=== PATIENT | female | born 1995 | race Caucasian/White ===

== ENCOUNTER 2019-04-07 08:58 | Outpatient (CLI) | payer BC ==
--- NOTE | 2019-04-07 10:51 | CT ---
CT of the abdomen with and without contrast: 04/07/2019 COMPARISON: CT angiogram of abdomen 02/28/2015 HISTORY: Evaluate for an adrenal mass lesion, history of Lyme disease, history of renal stone disease TECHNIQUE: Axial CT imaging at 5 mm intervals through the abdomen obtained with and without IV contra st using adrenal mass protocol. Coronal and sagittal reformatted imaging obtained FINDINGS: Imaged lung bases unremarkable. Cholecystectomy clips are present. The liver, spleen, pancreas, and adrenal glands are unremarkable on the precontrast and postcontrast imaging. There is a small round focus of soft tissue density between the upper pole of the left kidney and the medial aspect of the spleen just lateral to the left adrenal gland suggesting a small splenule. There is a punctate nonobstructing stone within the upper pole of the left kidney. Right kidney unrem arkable. The pelvis is not imaged on this exam. No lymphadenopathy is noted within the abdomen. Limited evaluation of the imaged bowel without contrast media is unremarkable. No acute osseous abnormality. IMPRESSION: No adrenal mass seen.
[2019-04-07] MEDS ORDERED: Iopamidol 370 76% 100 ML VIAL ONE (13:30)
== END 2019-04-07 08:59 | disposition home or self-care (01) ==
LOC: CT 08:58
DX: E78.5 Hyperlipidemia, unspecified (principal); M54.2 Cervicalgia; E34.9 Endocrine disorder, unspecified; R79.9 Abnormal finding of blood chemistry, unspecified; M54.5 Low back pain; R53.83 Other fatigue; M62.838 Other muscle spasm; R63.8 Other symptoms and signs concerning food and fluid intake; M25.551 Pain in right hip; M54.6 Pain in thoracic spine; M25.50 Pain in unspecified joint; M54.12 Radiculopathy, cervical region; R06.9 Unspecified abnormalities of breathing
CPT/HCPCS: 74170; Q9967

== ENCOUNTER 2020-02-07 15:01 | Outpatient (CLI) | payer BC ==
--- NOTE | 2020-02-07 15:47 | ULT ---
Bilateral renal ultrasound CLINICAL INDICATION: Renal calculi COMPARISON: 04/07/2019 FINDINGS: Right kidney: There is no evidence of a renal mass, renal calculus, or hydronephrosis seen. The right kidney measures 11.2 cm x 4 cm. Left kidney: Approximately 1 cm anechoic structure seen in the superior pole right kidney suggestive of a small cyst. This was seen on prior CT examination in 2019 and is smaller in size compared to CT examinations in 2015. There are small subcentimeter echogenic foci seen within the superior pole l eft kidney as well as midportion left kidney which may represent nonobstructing calculi. Calculus in the superior pole is difficult to adequately measure due to adjacent renal sinus fat. However, the calculus in the midportion left kidney measures approximately 0.7 cm. No obstructing calculus is seen. There is no hydronephrosis on the left.The left kidney measures 12 cm x 4.3 cm. Urinary bladder: Incompletely distended. IMPRESSION: 1. Normal-appearing right kidney without hydronephrosis or obvious renal calculus. 2. Suggestion of subcentimeter nonobstructing midportion and superior pole left renal calculi. 3. Small superior pole left renal cyst.
== END 2020-02-07 15:02 | disposition home or self-care (01) ==
LOC: SCSULT 15:01
PROVIDERS: ATTEND Urology
DX: N20.0 Calculus of kidney (principal); N28.1 Cyst of kidney, acquired
CPT/HCPCS: 76770

== ENCOUNTER 2020-03-14 07:50 | Outpatient (CLI) | payer BC ==
--- NOTE | 2020-03-14 08:45 | MRI ---
MRI of thelumbar spine: 03/14/2020 COMPARISON:None available HISTORY:Bilateral flank pain, back pain TECHNIQUE: Multiplanar multisequence MR imaging of thelumbar spine without contrast Findings:On the basis of 5 lumbar type vertebral bodies, conus medullaris terminates at T12-L1. Sagittal STIR imaging demonstrates no focal area of osseous marrow edema. T12-L1: Unremarkable L1-2: Unremarkable L2-3: Unremarkable L3-4: Unremarkable L4-5: Unremarkable L5-S1: Mild facet hypertrophy on the left. No significant central canal or neural foraminal stenosis. Image retroperitoneal structures demonstrate no acute findings. IMPRESSION:No significant central canal or neural foraminal stenosis within the lumbar spine:
--- NOTE | 2020-03-14 10:42 | CT ---
CT OF THE ABDOMEN AND PELVIS WITHOUT IV CONTRAST: Date: 03/14/2020 INDICATION: 24-year-old female with history of flank pain and renal stones. COMPARISON: Prior CT of the abdomen with and without contrast dated 04/07/[address] of the abdomen and pelvis without contrast dated 04/29/2019. FINDINGS: The 2.0 mm calculus involving the superior pole of the left kidney on the prior examination is stable appearing. No hydronephrosis or ureteral calculus is grossly evident. Gallbladder is surgically absent. The lung bases are clear. Unopacified liver, pancreas, adrenal glands, spleen, and kidneys appear within normal limits. No free fluid is evident. There is a normal appendix in the right lower quadrant. There is a moderate amount of retained stool within the colon. Small bowel is of normal caliber. The bladder is decompressed. The rectum and perir ectal soft tissues are unremarkable appearing. No enlarged lymph nodes are evident within the pelvis. No definite acute osseous abnormality is noted. IMPRESSION: 1. Stable left nephrolithiasis. No definite ureteral calculus or hydronephrosis demonstrated. 2. Cholecystectomy. 3. Moderate amount of retained stool within the colon. 4. Normal appendix. POS: AH
== END 2020-03-14 07:51 | disposition home or self-care (01) ==
LOC: MRI 07:50
PROVIDERS: ATTEND Neurological Surgery
DX: M54.5 Low back pain (principal); R10.9 Unspecified abdominal pain; N20.0 Calculus of kidney; K59.00 Constipation, unspecified; Z90.49 Acquired absence of other specified parts of digestive tract
CPT/HCPCS: 72148; 74176

== ENCOUNTER 2020-03-19 13:27 | Emergency (ER) | payer BC ==
[2020-03-19 15:35] LABS: Bilirubin Negative (Negative); Blood, Urine Negative (Negative); Clarity Clear (Clear); Glucose, Urine (Dipstick) Normal (Negative); Ketone, Urine Negative (Negative); Leukocyte Negative Leu/uL (Negative); Nitrite Negative (Negative); Protein, Urine (Dipstick) Negative (Neg-Trace); Specific Gravity, Urine 1.013 (1.002-1.036); Urobilinogen Normal mg/dL (Less than 2); pH, Urine 7.5 (5.0-9.0)
[2020-03-19 15:37] LABS: Pregnancy Test - Urine (BHCG) Negative (Negative); Pregu Control Background? CLEAR/WHITE (CLR/WHITE); Pregu Control Bar Appear? YES (CONTROL BAR); Specific Gravity 1.013 (1.002-1.036)
[2020-03-19 15:55] LABS: #Basophils 0.1 thou/uL (0.0-0.2); #Eosinphils 0.1 thou/uL (0.0-0.7); #Lymphocytes 3.2 thou/uL (1.20-3.40); #Monocytes 0.4 thou/uL (0.11-0.59); #Neutrophils 2.7 thou/uL (1.40-6.50); %Basophils 1.1 % (0.0-1.0); %Lymphocytes 48.6 % (21.0-51.0); %Monocytes 6.7 % (0.0-10.0); %Neutrophils 41.7 % (42.0-75.0); Hemoglobin 13.9 g/dL (12.0-16.0); Mean Corpuscular HGB CONC 34.5 g/dL (32.0-36.0); Mean Corpuscular Hemoglobin 31.1 pg (27.0-31.0); Mean Corpuscular Volume 90.1 fL (78.0-98.0); Mean Platelet Volume 7.8 fL (7.4-10.4); Platelet Count 364 thou/uL (130-400); RBC Distribution Width 11.3 % (11.5-14.5); Red Blood Cell (RBC) Count 4.47 mill/uL (4.20-5.40); White Blood Cell (WBC) Count 6.6 thou/uL (4.8-10.8)
[2020-03-19 16:07] LABS: BHCG - Serum Negative (NEGATIVE); Pregs Control Background? CLEAR/WHITE (CLR/WHITE); Pregs Control Bar Appear? YES (CONTROL BAR)
[2020-03-19 16:17] LABS: ALT (SGPT) 26 U/L (8-55); AST (SGOT) 24 U/L (5-34); Albumin 4.3 g/dL (3.5-5.0); Alkaline Phosphatase 38 U/L (40-110); Anion Gap 13 mmol/L (10-20); BUN (Urea Nitrogen) 8 mg/dL (7.0-18.7); Bilirubin, Total 0.2 mg/dL (0.2-1.2); Calc. Creatinine Clearance 0 mL/min (70-130); Calcium 9.1 mg/dL (7.8-10.44); Carbon Dioxide 23 mmol/L (22-29); Chloride 105 mmol/L (98-107); Estimated GFR-MDRD Greater than 90; Globulin 2.7 g/dL (2.4-3.5); Glucose 95 mg/dL (70-105); Potassium 3.9 mmol/L (3.5-5.1); Sodium 137 mmol/L (136-145)
== END 2020-03-19 17:21 | disposition home or self-care (01) ==
LOC: ERS 13:27
DX: R30.0 Dysuria (principal); R10.9 Unspecified abdominal pain; G89.4 Chronic pain syndrome; R50.9 Fever, unspecified; M25.559 Pain in unspecified hip; M54.9 Dorsalgia, unspecified; F41.9 Anxiety disorder, unspecified; F32.9 Major depressive disorder, single episode, unspecified; Z79.891 Long term (current) use of opiate analgesic
CPT/HCPCS: 36415; 80053; 81003; 81025; 84703; 85025; 87086; 99284

== ENCOUNTER 2021-05-06 15:36 | Outpatient (CLI) | payer BC | END 2021-05-06 15:37 | disposition home or self-care (01) | LOC: CTENTCT 15:36 | PROVIDERS: ATTEND Specialist | DX: J32.8 Other chronic sinusitis (principal) | CPT/HCPCS: 70486 ==

== ENCOUNTER 2021-09-24 17:11 | Emergency (ER) | payer BC ==
[2021-09-24] MEDS ORDERED: Ketorolac Tromethamine 30 MG/ML VIAL ONE (17:34)
[2021-09-24] MEDS ORDERED: Morphine 4 MG/ML VIAL ONE ×3 (17:34→20:29)
[2021-09-24] MEDS ORDERED: Ondansetron PF 4 MG/2 ML Vial ONE (17:34)
[2021-09-24 17:42] LABS: #Lymphocytes 2.2 thou/uL (1.20-3.40); #Monocytes 0.6 thou/uL (0.11-0.59); #Neutrophils 4.6 thou/uL (1.40-6.50); %Basophils 0.5 % (0.0-1.0); %Eosinophils 0.5 % (0.0-10.0); %Lymphocytes 29.1 % (21.0-51.0); %Monocytes 7.7 % (0.0-10.0); %Neutrophils 62.2 % (42.0-75.0); Hemoglobin 13.2 g/dL (12.0-16.0); Mean Corpuscular HGB CONC 32.8 g/dL (32.0-36.0); Mean Corpuscular Hemoglobin 31.2 pg (27.0-31.0); Mean Corpuscular Volume 95.2 fL (78.0-98.0); Mean Platelet Volume 7.1 fL (7.4-10.4); Platelet Count 280 thou/uL (130-400); RBC Distribution Width 12.6 % (11.5-14.5); Red Blood Cell (RBC) Count 4.24 mill/uL (4.20-5.40); White Blood Cell (WBC) Count 7.4 thou/uL (4.8-10.8)
[2021-09-24 18:05] LABS: ALT (SGPT) 69 U/L (8-55); AST (SGOT) 27 U/L (5-34); Albumin 4.5 g/dL (3.5-5.0); Alkaline Phosphatase 40 U/L (40-110); Anion Gap 14 mmol/L (10-20); BUN (Urea Nitrogen) 15 mg/dL (7.0-18.7); Bilirubin, Total 0.3 mg/dL (0.2-1.2); Calc. Creatinine Clearance 0 mL/min (70-130); Calcium 9.4 mg/dL (7.8-10.44); Carbon Dioxide 19 mmol/L (22-29); Chloride 108 mmol/L (98-107); Globulin 2.6 g/dL (2.4-3.5); Glucose 105 mg/dL (70-105); Lipase 19 U/L (8-78); Potassium 3.8 mmol/L (3.5-5.1); Protein, Total 7.1 g/dL (6.0-8.3); Sodium 137 mmol/L (136-145)
[2021-09-24 19:21] LABS: Bilirubin Negative (Negative); Blood, Urine Negative (Negative); Clarity Clear (Clear); Glucose, Urine (Dipstick) Normal (Negative); Ketone, Urine Negative (Negative); Leukocyte Negative Leu/uL (Negative); Nitrite Negative (Negative); Protein, Urine (Dipstick) Negative (Neg-Trace); Specific Gravity, Urine 1.016 (1.002-1.036); Urobilinogen Normal mg/dL (Less than 2)
[2021-09-24 19:23] LABS: Pregnancy Test - Urine (BHCG) Negative (Negative)
[2021-09-24 19:24] LABS: Pregu Control Background? CLEAR/WHITE (CLR/WHITE); Pregu Control Bar Appear? YES (CONTROL BAR); Specific Gravity 1.016 (1.002-1.036)
[2021-09-24] MEDS ORDERED: Promethazine HCl 25 MG in Sodium Chloride 0.9% 50 ML IVPB SCH (19:30)
== END 2021-09-24 21:09 | disposition home or self-care (01) ==
LOC: ERS 17:11
DX: N20.2 Calculus of kidney with calculus of ureter (principal)
CPT/HCPCS: 74176; 80053; 81003; 81025; 83690; 85025; 96365; 96375; 96376; J1885; J2270; J2405; J2550

== ENCOUNTER 2021-09-26 17:51 | Outpatient (CLI) | payer BC ==
[2021-09-27 02:13] LABS: SARS-CoV-2 PCR by NAA Not Detected (NotDetected)
== END 2021-09-26 17:52 | disposition home or self-care (01) ==
LOC: LABBT 17:51
PROVIDERS: ATTEND Urology
DX: Z20.822 Contact with and (suspected) exposure to COVID-19 (principal)
CPT/HCPCS: U0003; U0005

== ENCOUNTER 2021-09-27 10:04 | Outpatient (CLI) | payer BC | END 2021-09-27 10:05 | disposition home or self-care (01) | LOC: RAD 10:04 | PROVIDERS: ATTEND Urology | DX: N20.0 Calculus of kidney (principal) | CPT/HCPCS: 74018 ==

== ENCOUNTER 2021-10-09 11:54 | Outpatient (CLI) | payer BC | END 2021-10-09 11:55 | disposition home or self-care (01) | LOC: CT 11:54 | PROVIDERS: ATTEND Urology | DX: N20.2 Calculus of kidney with calculus of ureter (principal) | CPT/HCPCS: 74176 ==

== ENCOUNTER 2021-10-18 20:24 | Inpatient (IN) | payer BC ==
[2021-10-18] MEDS ORDERED: Fentanyl 100 MCG/2 ML VIAL ONE (21:38)
[2021-10-18] MEDS ORDERED: Ketorolac Tromethamine 30 MG/ML VIAL ONE (21:38)
[2021-10-18] MEDS ORDERED: Dicyclomine 20 MG/2 ML VIAL ONE (21:38)
[2021-10-18] MEDS ORDERED: Ondansetron PF 4 MG/2 ML Vial ONE (22:25)
[2021-10-19] MEDS ORDERED: Promethazine HCl 12.5 MG in Sodium Chloride 0.9% 50 ML IVPB SCH ×2 (01:15→04:45)
[2021-10-19 02:06] LABS: #Basophils 0.1 thou/uL (0.0-0.2); #Eosinphils 0.1 thou/uL (0.0-0.7); #Lymphocytes 2.1 thou/uL (1.20-3.40); #Monocytes 0.9 thou/uL (0.11-0.59); #Neutrophils 4.8 thou/uL (1.40-6.50); %Basophils 0.8 % (0.0-1.0); %Eosinophils 0.7 % (0.0-10.0); %Lymphocytes 26.1 % (21.0-51.0); %Monocytes 11.8 % (0.0-10.0); %Neutrophils 60.6 % (42.0-75.0); Mean Corpuscular HGB CONC 33.3 g/dL (32.0-36.0); Mean Corpuscular Hemoglobin 30.7 pg (27.0-31.0); Mean Corpuscular Volume 92.1 fL (78.0-98.0); Mean Platelet Volume 7.4 fL (7.4-10.4); Platelet Count 268 thou/uL (130-400); RBC Distribution Width 12.4 % (11.5-14.5); Red Blood Cell (RBC) Count 4.24 mill/uL (4.20-5.40)
[2021-10-19 02:53] LABS: Albumin 3.8 g/dL (3.5-5.0)
[2021-10-19 02:55] LABS: Calcium 8.3 mg/dL (7.8-10.44); Chloride 114 mmol/L (98-107); Potassium 3.9 mmol/L (3.5-5.1); Sodium 139 mmol/L (136-145)
[2021-10-19 02:56] LABS: Globulin 2.1 g/dL (2.4-3.5); Glucose 63 mg/dL (70-105); Protein, Total 5.9 g/dL (6.0-8.3)
[2021-10-19 02:57] LABS: Anion Gap 18 mmol/L (10-20); Carbon Dioxide 11 mmol/L (22-29)
[2021-10-19 02:58] LABS: Bilirubin, Total 0.3 mg/dL (0.2-1.2)
[2021-10-19 02:59] LABS: Alkaline Phosphatase 44 U/L (40-110); Calc. Creatinine Clearance 0 mL/min (70-130)
[2021-10-19 03:00] LABS: BUN (Urea Nitrogen) 9 mg/dL (7.0-18.7)
[2021-10-19 03:01] LABS: AST (SGOT) 146 U/L (5-34)
[2021-10-19 03:02] LABS: ALT (SGPT) 201 U/L (8-55)
[2021-10-19] MEDS ORDERED: Acetaminophen 325 MG TAB PO PRN (04:25)
[2021-10-19] MEDS ORDERED: Acetaminophen 500 MG TAB PO PRN (04:29)
[2021-10-19] MEDS ORDERED: Fentanyl 100 MCG/2 ML VIAL SLOW IVP SCH (04:45)
[2021-10-19] MEDS ORDERED: Fentanyl 100 MCG/2 ML VIAL ONE (04:53)
[2021-10-19] MEDS ORDERED: Ondansetron PF 4 MG/2 ML Vial ONE (04:53)
[2021-10-19 06:28] VITALS: BMI 35.9
[2021-10-19 08:02] LABS: HBCM Index 0.11 S/CO (0-0.79); HBSAg Index 0.27 S/CO (0-0.99); Hep A IgM AB Non-Reactive (NonReactive); Hep A IgM S/CO 0.25 S/CO (0-0.79); Hep B Surf Ag Non-Reactive S/CO (NonReactive); Hep C IgG Ab Non-Reactive (NonReactive); Hep C Index 0.05 S/CO (0-0.79); Hepatitis B Core IgM Abs Non-Reactive (NonReactive)
[2021-10-19] MEDS: Sodium Bicarbonate 150 MEQ in Dextrose 5% in Water 1,000 ML IV SCH ×2 (08:10→18:29)
[2021-10-19 08:30] LABS: Free T4 (Free Thyroxine) 0.71 ng/dL (0.70-1.48)
[2021-10-19] MEDS ORDERED: Pantoprazole 40 MG VIAL IVP SCH (09:00)
[2021-10-19] MEDS ORDERED: Montelukast Sodium 10 mg Tablet PO SCH (09:00)
[2021-10-19] MEDS: Ondansetron PF 4 MG/2 ML Vial IVP PRN ×3 (11:52→23:00)
[2021-10-19] MEDS: Nebivolol HCl 5 MG TAB PO SCH (13:28)
[2021-10-19] MEDS: Gabapentin 300 MG CAP PO SCH ×3 (13:36→18:30)
[2021-10-19] MEDS: Clopidogrel Bisulfate 75 MG TAB PO SCH ×2 (13:36→13:53)
[2021-10-19] MEDS: oxyCODONE 5 MG TAB PO SCH ×5 (13:37→22:51)
[2021-10-19] MEDS: Enoxaparin Sodium 40 MG/0.4 ML SYRINGE SC SCH (13:40)
[2021-10-19] MEDS ORDERED: Ketorolac Tromethamine 30 MG/ML VIAL IVP SCH (17:30)
[2021-10-19] MEDS ORDERED: Ketorolac Tromethamine 30 MG/ML VIAL ONE (17:36)
[2021-10-19] MEDS ORDERED: Oxycodone Myristate [Xtampza Er] 13.5 MG Cap.Spr.12 PO SCH ×2 (21:00→22:30)
[2021-10-19] MEDS: Montelukast Sodium 10 mg Tablet PO SCH (21:33)
[2021-10-19] MEDS: CROMOLYN SODIUM 20 MG/ML PO SCH ×2 (22:27→22:53)
[2021-10-19] MEDS ORDERED: hydrOXYzine 25 MG TAB PO SCH (23:59)
[2021-10-19] MEDS ORDERED: traMADol HCl 50 MG TAB PO SCH (23:59)
[2021-10-20] MEDS: Gabapentin 300 MG CAP PO SCH ×3 (03:34→18:43)
[2021-10-20] MEDS: oxyCODONE 5 MG TAB PO SCH ×5 (03:34→18:43)
[2021-10-20] MEDS: Sodium Bicarbonate 150 MEQ in Dextrose 5% in Water 1,000 ML IV SCH ×3 (06:29→23:03)
[2021-10-20 06:33] LABS: #Eosinphils 0.1 thou/uL (0.0-0.7); #Lymphocytes 1.9 thou/uL (1.20-3.40); #Monocytes 0.6 thou/uL (0.11-0.59); #Neutrophils 1.5 thou/uL (1.40-6.50); %Basophils 0.5 % (0.0-1.0); %Eosinophils 2.6 % (0.0-10.0); %Lymphocytes 45.4 % (21.0-51.0); %Neutrophils 37.6 % (42.0-75.0); Hemoglobin 11.9 g/dL (12.0-16.0); Mean Corpuscular HGB CONC 33.8 g/dL (32.0-36.0); Mean Corpuscular Hemoglobin 31.6 pg (27.0-31.0); Mean Corpuscular Volume 93.4 fL (78.0-98.0); Mean Platelet Volume 7.7 fL (7.4-10.4); Platelet Count 259 thou/uL (130-400); Red Blood Cell (RBC) Count 3.78 mill/uL (4.20-5.40); White Blood Cell (WBC) Count 4.1 thou/uL (4.8-10.8)
[2021-10-20 06:42] LABS: ALT (SGPT) 239 U/L (8-55); AST (SGOT) 195 U/L (5-34); Albumin 3.7 g/dL (3.5-5.0); Alkaline Phosphatase 42 U/L (40-110); Anion Gap 14 mmol/L (10-20); BUN (Urea Nitrogen) 6 mg/dL (7.0-18.7); Bilirubin, Total 0.4 mg/dL (0.2-1.2); Calc. Creatinine Clearance 152 mL/min (70-130); Calcium 8.7 mg/dL (7.8-10.44); Carbon Dioxide 21 mmol/L (22-29); Chloride 108 mmol/L (98-107); Globulin 1.9 g/dL (2.4-3.5); Glucose 89 mg/dL (70-105); Protein, Total 5.6 g/dL (6.0-8.3); Sodium 140 mmol/L (136-145)
[2021-10-20 06:46] LABS: Potassium 2.9 mmol/L (3.5-5.1)
[2021-10-20 07:14] LABS: Magnesium 1.7 mg/dL (1.6-2.6)
[2021-10-20] MEDS ORDERED: Electrolyte Replacement Protocol FS PRN (07:15)
[2021-10-20] MEDS: Thyroid 30 MG TAB PO SCH (07:19)
[2021-10-20] MEDS ORDERED: Linaclotide [Linzess] 145 MCG Capsule PO SCH (07:30)
[2021-10-20] MEDS ORDERED: Fioricet 325/50/40 mg Tablet PO PRN (07:53)
[2021-10-20] MEDS: Oxycodone Myristate [Xtampza Er] 13.5 MG Cap.Spr.12 PO SCH ×2 (08:39→21:43)
[2021-10-20] MEDS: Potassium Chloride 40 MEQ in Sodium Chloride 0.9% 250 ML 250 ML IVPB SCH ×2 (08:39→15:30)
[2021-10-20] MEDS: Famotidine 20 MG TAB PO SCH (08:40)
[2021-10-20] MEDS: Enoxaparin Sodium 40 MG/0.4 ML SYRINGE SC SCH (08:41)
[2021-10-20] MEDS: Clopidogrel Bisulfate 75 MG TAB PO SCH (08:41)
[2021-10-20] MEDS: hydrOXYzine 25 MG TAB PO SCH ×3 (08:41→20:58)
[2021-10-20] MEDS: CROMOLYN SODIUM 20 MG/ML PO SCH ×4 (08:42→20:59)
[2021-10-20] MEDS: Nebivolol HCl 5 MG TAB PO SCH (08:42)
[2021-10-20] MEDS ORDERED: Magnesium 2 GM/50 ML(in water) 2 GM in Premix Bag 1 BAG IVPB SCH (09:00)
[2021-10-20] MEDS: Ondansetron PF 4 MG/2 ML Vial IVP PRN ×2 (10:12→15:51)
[2021-10-20] MEDS ORDERED: Potassium Chloride 20 MEQ TAB PO SCH (10:45)
[2021-10-20] MEDS ORDERED: Albuterol Sulfate 2.5 mg/3 ml Neb ONE ×3 (13:39→13:41)
[2021-10-20] MEDS ORDERED: Albuterol Sulfate 1.25 MG/3 ML NEB ONE (13:41)
[2021-10-20] MEDS ORDERED: Midazolam HCl 2 mg/2 ml Vial ONE (14:17)
[2021-10-20] MEDS ORDERED: PROPOFOL 200 MG/20 ML VIAL ONE (14:46)
[2021-10-20] MEDS ORDERED: Lidocaine 1% PF 5 ML VIAL ONE (14:46)
[2021-10-20] MEDS: Promethazine 25 MG TAB PO PRN (17:36)
[2021-10-20] MEDS: Montelukast Sodium 10 mg Tablet PO SCH (20:58)
[2021-10-20] MEDS ORDERED: Dicyclomine 10 MG CAP PO SCH (21:45)
[2021-10-20] MEDS: Morphine 2 MG/ML VIAL SLOW IVP PRN (22:22)
[2021-10-21] MEDS ORDERED: oxyCODONE 5 MG TAB PO SCH (00:15)
[2021-10-21] MEDS: Gabapentin 300 MG CAP PO SCH ×3 (03:48→18:17)
[2021-10-21] MEDS: Thyroid 30 MG TAB PO SCH (06:26)
[2021-10-21] MEDS: oxyCODONE 5 MG TAB PO PRN ×4 (06:26→18:18)
[2021-10-21 07:48] LABS: #Basophils 0.1 thou/uL (0.0-0.2); #Eosinphils 0.1 thou/uL (0.0-0.7); #Monocytes 0.6 thou/uL (0.11-0.59); #Neutrophils 1.5 thou/uL (1.40-6.50); %Basophils 1.6 % (0.0-1.0); %Eosinophils 2.8 % (0.0-10.0); %Lymphocytes 46.3 % (21.0-51.0); %Monocytes 14.9 % (0.0-10.0); %Neutrophils 34.4 % (42.0-75.0); Hemoglobin 11.9 g/dL (12.0-16.0); Mean Corpuscular HGB CONC 34.2 g/dL (32.0-36.0); Mean Corpuscular Hemoglobin 31.5 pg (27.0-31.0); Mean Corpuscular Volume 92.3 fL (78.0-98.0); Mean Platelet Volume 7.5 fL (7.4-10.4); Platelet Count 282 thou/uL (130-400); RBC Distribution Width 12.2 % (11.5-14.5); Red Blood Cell (RBC) Count 3.79 mill/uL (4.20-5.40); White Blood Cell (WBC) Count 4.3 thou/uL (4.8-10.8)
[2021-10-21 08:13] LABS: ALT (SGPT) 194 U/L (8-55); AST (SGOT) 124 U/L (5-34); Albumin 3.6 g/dL (3.5-5.0); Alkaline Phosphatase 39 U/L (40-110); Anion Gap 13 mmol/L (10-20); BUN (Urea Nitrogen) Less than 4 mg/dL (7.0-18.7); Bilirubin, Total 0.3 mg/dL (0.2-1.2); Calc. Creatinine Clearance 193 mL/min (70-130); Calcium 8.6 mg/dL (7.8-10.44); Carbon Dioxide 26 mmol/L (22-29); Chloride 106 mmol/L (98-107); Globulin 1.8 g/dL (2.4-3.5); Glucose 98 mg/dL (70-105); Protein, Total 5.4 g/dL (6.0-8.3); Sodium 142 mmol/L (136-145)
[2021-10-21 08:16] LABS: Potassium 2.7 mmol/L (3.5-5.1)
[2021-10-21] MEDS ORDERED: AcetaZOLAMIDE 250 MG TAB PO SCH (09:00)
[2021-10-21] MEDS ORDERED: Magnevist 469MG/ML 20 ML VIAL ONE (09:03)
[2021-10-21] MEDS: Clopidogrel Bisulfate 75 MG TAB PO SCH (09:36)
[2021-10-21] MEDS: Nebivolol HCl 5 MG TAB PO SCH (09:36)
[2021-10-21] MEDS: Promethazine 25 MG TAB PO PRN ×2 (09:36→17:13)
[2021-10-21] MEDS: Enoxaparin Sodium 40 MG/0.4 ML SYRINGE SC SCH (09:36)
[2021-10-21] MEDS: hydrOXYzine 25 MG TAB PO SCH ×2 (09:36→14:58)
[2021-10-21] MEDS: Famotidine 20 MG TAB PO SCH (09:36)
[2021-10-21] MEDS: Potassium Chloride 20 MEQ TAB PO SCH ×2 (09:36→13:29)
[2021-10-21] MEDS: Dicyclomine 10 MG CAP PO SCH ×3 (09:36→17:05)
[2021-10-21] MEDS: CROMOLYN SODIUM 20 MG/ML PO SCH ×3 (09:37→17:05)
[2021-10-21] MEDS: Oxycodone Myristate [Xtampza Er] 13.5 MG Cap.Spr.12 PO SCH (10:39)
[2021-10-21] MEDS: Morphine 2 MG/ML VIAL SLOW IVP PRN ×2 (10:45→17:05)
[2021-10-21] MEDS ORDERED: Potassium Chloride 20 MEQ in Premix Bag 1 BAG IVPB SCH (11:30)
[2021-10-21] MEDS ORDERED: Prochlorperazine Maleate 5 MG TAB PO PRN (11:58)
[2021-10-21] MEDS ORDERED: Cosyntropin 250 MCG VIAL SLOW IVP SCH (18:00)
[2021-10-21 18:47] LABS: Potassium 3.8 mmol/L (3.5-5.1)
[2021-10-21 19:44] VITALS: BP 103/68; TEMP 98.2
[2021-10-22] MEDS ORDERED: Loratadine 10 MG TAB PO SCH (09:00)
== END 2021-10-21 20:15 | disposition home or self-care (01) | DRG 392 ==
LOC: ERS 20:24 → T4-A 10-19 04:11 → OBSVTOIN 10-21 11:13
PROVIDERS: ADMIT Internal Medicine; ATTEND Internal Medicine
PROC: 0DJ08ZZ Inspection of Upper Intestinal Tract, Via Natural or Artificial Opening Endoscopic (ICD-10-PCS; principal; 2021-10-20)
DX: K58.1 Irritable bowel syndrome with constipation (principal); E87.2 Acidosis; K21.00 Gastro-esophageal reflux disease with esophagitis, without bleeding; Z20.822 Contact with and (suspected) exposure to COVID-19; G89.4 Chronic pain syndrome; G93.2 Benign intracranial hypertension; F41.9 Anxiety disorder, unspecified; N20.0 Calculus of kidney; K76.0 Fatty (change of) liver, not elsewhere classified; E87.6 Hypokalemia; Z90.49 Acquired absence of other specified parts of digestive tract; Z99.3 Dependence on wheelchair; Z88.5 Allergy status to narcotic agent; Z79.51 Long term (current) use of inhaled steroids; Z79.899 Other long term (current) drug therapy
CPT/HCPCS: 36415; 74183; 76705; 80053; 80074; 83735; 84439; 84443; 84702; 85025; 85652; 86140; 87045; 87046; 87324; 87328; 87329; 87427; 87449; 96375; A9579; C9113; G0378; J0500; J1885; J2250; J2270; J2405; J2550; J2704; J3010; J3475; J3480; J7050; J7070; J7611; Q0164; Q0169; U0003; U0005